=== PATIENT | male | born 1950 | race Caucasian/White ===

== ENCOUNTER → 2021-06-22 | Outpatient (BNVA) | payer MEDICARE, BC, SELFPAY | END | disposition home or self-care (01) | PROVIDERS: PCP Family Medicine; Visit Provider Urology | DX: I10 Essential (primary) hypertension (principal) ==

== ENCOUNTER → 2025-01-28 | Outpatient (CLI) | payer MEDICARE, BC, SELFPAY ==
[2025-01-28 12:02] LABS: Basophils # (Auto) 0.1 Thou/mm3 (0.0-0.2); Basophils % (Auto) 1 % (0-2.5); Eosinophils # (Auto) 0.2 Thou/mm3 (0.0-0.5); Eosinophils % (Auto) 3 % (0-10); Hematocrit 40.5 % (41.0-53.0); Hemoglobin 14.3 g/dL (13.5-16.0); Immature Granulocytes % (Auto) 0 % (0-0); Immature Granulocytes Auto 0.03 Thou/mm3 (0.00-0.00); Lymphocytes # (Auto) 2.5 Thou/mm3 (1.0-4.8); Lymphocytes % (Auto) 31 % (10-50); Mean Corpuscular HGB Conc 35.3 g/dl (31.0-37.0); Mean Corpuscular Hemoglobin 33.6 pg (25.0-35.0); Mean Corpuscular Volume 95 fL (80-100); Monocytes # (Auto) 0.7 Thou/mm3 (0.0-0.8); Monocytes % (Auto) 9 % (0-12); Neutrophils # (Auto) 4.4 Thou/mm3 (1.8-7.7); Neutrophils % (Auto) 56 % (37-80); Nucleated Red Blood Cell % 0 /100 WBC (0); Platelet Count 262 Thou/mm3 (140-440); RDW Standard Deviation 41.1 fL (35.1-43.9); Red Blood Count 4.26 Miln/mm3 (4.50-5.90); White Blood Count 7.9 Thou/mm3 (3.8-10.6)
[2025-01-28 12:15] LABS: Alanine Aminotransferase 19 U/L (10-49); Albumin, Serum 4.2 gm/dL (3.4-4.8); Albumin/Globulin Ratio 1.7 (1.2-2.2); Alkaline Phosphatase 63 U/L (46-116); Anion Gap 6 (7-16); Aspartate Amino Transferase 26 U/L (0-34); BUN/Creatinine Ratio 14 Ratio (12-20); Bilirubin,Total 1.2 mg/dL (0.3-1.2); Blood Urea Nitrogen 18 mg/dL (9-23); Calcium 9.2 mg/dL (8.3-10.6); Calcium (Corrected) 9.2 mg/dL (8.5-10.1); Carbon Dioxide 30.9 mMol/L (20.0-31.0); Chloride 102 mMol/L (98-107); Creatinine (Component) 1.3 mg/dL (0.6-1.3); Globulin 2.5 gm/dL (2.3-3.5); Glucose 106 mg/dL (74-106); Osmolality,Calculated 279 (275-295); Potassium 4.6 mMol/L (3.4-5.1); Sodium 139 mMol/L (136-145); Total Protein 6.7 gm/dL (5.7-8.2); eGFR 57 See Note
== END | disposition home or self-care (01) ==
LOC: SCTO 11:15
PROVIDERS: PCP Family Medicine; Referring Provider Internal Medicine Hematology & Oncology; Visit Provider Internal Medicine Hematology & Oncology
DX: C77.0 Secondary and unspecified malignant neoplasm of lymph nodes of head, face and neck (principal)
CPT/HCPCS: 36415; 80053; 85025

== ENCOUNTER 2025-01-30 09:52 | Outpatient (RCR) | payer MEDICARE, BC, SELFPAY ==
--- NOTE | 2025-01-30 13:10 | CTCFLWUP_ITS ---
Patient: ZENOBIA LEVIN : 1950 Page 2 of 2 FOLLOW UP NOTE DATE OF SERVICE: 01/30/2025 NAME: ZENOBIA LEVIN ACCOUNT: [id number] : 1950 AGE: 74 INTERVAL HISTORY: Zenobia, a male with history of high-grade left neck mass (metastatic cancer with unknown primary), presented for follow-up. He was treated with cetuximab in 2008 and has remained in remission for over 15 years. Patient denied new symptoms, weight loss, or health concerns. He reported minimal smoking history and recent normal prostate examination. Assessment confirmed long-term remission with favorable prognosis. Plan includes annual follow-ups, ENT referral for nasopharyngeal examination, routine cancer screenings, and PSA testing. Chief Complaint Follow-up for high-grade left neck mass treated over 15 years ago History of Present Illness Zenobia Levin is a male patient with a history of high-grade left neck mass, diagnosed as metastatic cancer with unknown primary, who was treated with cetuximab from October 2008 to December 2008. He has been in remission for more than 15 years and is presenting for a follow-up visit. Mr. Levin reports no new symptoms or concerns at this visit. He denies any recent weight loss. His last colonoscopy was performed a couple of months ago, though results were not discussed. He mentions that his tonsils were removed when he was about 3 years old. Regarding his smoking history, Mr. Levin clarifies that he was never a regular smoker. He reports smoking very infrequently, estimating he consumed only one or two packs per year, typically during emergency work situations such as fires, floods, or earthquakes. A pack would last him two to three weeks during these periods. He quit smoking long before his cancer diagnosis. Mr. Levin reports compliance with routine cancer screenings. He recently underwent a prostate examination, which he states showed no abnormalities. He denies any current health issues or changes in his overall health status. Medications and Supplements - Cetuximab - Taken from October 2008 to December 2008 - Discontinued Review of Systems General: Negative for weight loss. Genitourinary: Negative for prostate issues. 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 Unknown primary. REASON FOR TODAY?S VISIT: This is office follow-up visit. Mr. Levin is here at [facility]. He is clinically doing well. Denies any new complaints. Denies any cough, chest pain, abdominal pain or leg cramps. Ambulating well without any help. Has good appetite and good energy levels. Her last colonoscopy was done about 8 years ago according to Mr. Levin. 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 Pathology showed metastatic high-grade poorly differentiated carcinoma with areas of comedonecrosis. Workup reportedly did not show a primary source. He was treated with chemoradiation. For chemotherapy he was on Erbitux from 10/09/2008 through 12/18/2008. Since then he has been recurrence free. 08/15/2018: I am seeing him for the first time today. He is doing very well. 07/22/2020: Retroperitoneal ultrasound? OTHER MEDICAL HISTORY/CONDITIONS: FAMILY HISTORY: SOCIAL HISTORY: MEDICATIONS: 1. No medications reported by patient - Medications Last Reconciled by Anastasiya Fraser MA on 01/30/2025 ALLERGIES: No Known Drug Allergies REVIEW OF SYSTEMS: A complete 14-point review of systems was performed and is negative except as noted in interval history. PHYSICAL EXAMINATION: VITAL SIGNS: Temperature?99, B/P?103/63, Oxygen?Saturation?96% PAIN: 0 - No pain ECOG Performance Status: 0 - Asymptomatic and fully active GENERAL APPEARANCE: Appears well, in no apparent distress, appropriately interactive. HEENT: Normocephalic, no temporal wasting, normal conjunctiva, no scleral icterus, normal hearing, lips without lesions, neck normal range of motion. CARDIOVASCULAR: Not assessed. PULMONARY: Normal respiratory effort, no respiratory distress or use of accessory muscles, speaking in full sentences, no tachypnea. EXTREMITIES: No pedal edema or cyanosis. SKIN: Normal skin appearance. NEUROLOGIC: Alert and oriented x4. PSHYCHIATRIC: Appropriate affect, mood normal, behavior normal, intact thought and speech. LABORATORY DATA: I have personally reviewed and interpreted each of the patient?s relevant lab tests, abnormal findings are below: Date 01/31/24 01/28/25 ??WHITE?BLOOD?COUNT?(Thou/mm3) 6.4 7.9 ??RED?BLOOD?COUNT?(Miln/mm3) 4.20?L 4.26?L ??HEMOGLOBIN?(gm/dl) 13.9 14.3 ??HEMATOCRIT?(%) 41.5 40.5?L ??PLATELET?COUNT?(Thou/mm3) 268 262 ??NEUTROPHILS?%,?AUTO?(%) 46 56 ??LYMPH?%,?AUTO?(%) 39 31 ??NEUTROPHILS,?AUTO?(Thou/mm3) 2.9 4.4 ??GLUCOSE,RANDOM?(mg/dL) 83 106 ??BLOOD?UREA?NITROGEN?(mg/dL) 21 18 ??CREATININE?(mg/dL) 1.20 1.30 ??SODIUM?(mmol/L) 139 139 ??POTASSIUM?(mmol/L) 4.7 4.6 ??CHLORIDE?(mmol/L) 104 102 ??CrCl?(CandG)?(ml/min) 56.48 49.45 ??AST/SGOT?(Unit/L) 26 26 ??ALT/SGPT?(Unit/L) 21 19 ??ALKALINE?PHOSPHATASE?(Unit/L) 63 63 ??BILIRUBIN,?TOTAL?(mg/dL) 0.9 1.2 ??PROTEIN?TOTAL?(gm/dl) 6.8 6.7 ??ALBUMIN,?SERUM?(gm/dl) 4.3 4.2 ??GLOBULIN?(gm/dl) 2.5 2.5 ??ALBUMIN/GLOBULIN?RATIO 1.7 1.7 ??CALCIUM,?SERUM?(mg/dL) 9.2 9.2 ??CALCIUM?SERUM?(CORRECTED)?(mg/dL) 9.2 9.2 Laboratory, Imaging, and Diagnostic Test Results - Tumor markers: - CK7: Positive - Cytokeratin: Positive - CK20: Negative - TGFR: Negative - ASSESSMENT/PLAN: Zenobia Levin, male patient with history of high-grade left neck mass treated with cetuximab from October to December 2008, now in remission for over 15 years. 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 Assessment: Patient was diagnosed with metastatic high-grade poorly differentiated carcinoma with comedonecrosis over 15 years ago. The primary site was unknown, with only a lymph node involvement identified. Tumor markers were CK7 and cytokeratin positive, CK20 negative, TGFR negative. Patient was treated with cetuximab from October 2008 to December 2008. He has been in remission for more than 15 years, which is well beyond the typical timeframe for chemotherapy and radiation-induced secondary cancers (usually occurring around year 4 or 5 post- treatment). The patient's long-term survival without recurrence suggests a favorable prognosis. Plan: - Continue annual follow-up visits - Refer to ENT for nasopharyngeal examination - Recommend routine cancer screenings, including colonoscopy - Order PSA testing - Advise patient to report any new weight loss History of Smoking Assessment: Patient reports minimal smoking history, estimated at 1-2 packs per year, primarily during emergency work situations. This level of smoking is not considered significant enough to warrant additional screening measures such as chest CT scans, which are typically recommended for individuals with a 20-30 pack-year history. Plan: - No specific interventions required for smoking history at this time Prostate Health Monitoring Assessment: Patient reports recent prostate examination via scope with normal findings. However, PSA testing has not been performed in the past. Plan: - Order PSA testing - Educate patient on the importance of prostate cancer screening ORDERS: Order # Description [id number] Comprehensive Metabolic Panel - 12 + CBC with Auto Diff + MD Follow Up 1 Year + [id number] PSA RETURN TO CLINIC: BILLING AND COMPLIANCE: I reviewed external records from providers outside my specialty as summarized above. I spent a total of 50 minutes on this patient?s care on the day of their visit excluding time spent related to any billed procedures. This time includes time spent with the patient as well as time spent documenting in the medical record, reviewing patients records and tests, obtaining history, placing orders, communicating with other healthcare professionals, counseling the patient, family or caregiver, and/or care coordination for the diagnoses above. Electronically Signed by: Tony Proctor MD T: 1:08 PM CC: Peyton? PCP: Anastasiya Peck Referring: Anastasiya Peck This document was completed utilizing speech recognition software. Grammatical errors, random word insertions, pronoun errors, and incomplete sentences are an occasional consequence of this system due to software limitations, ambient noise, and hardware issues. Any formal questions or concerns about the content, text or information contained within the body of this dictation should be directly addressed to the provider for clarification.
== END 2025-02-03 23:59 | disposition home or self-care (01) ==
LOC: SCTC 09:52
PROVIDERS: PCP Family Medicine; Referring Provider Family Medicine; Visit Provider Internal Medicine Hematology & Oncology
DX: Z08 Encounter for follow-up examination after completed treatment for malignant neoplasm (principal); Z85.89 Personal history of malignant neoplasm of other organs and systems
CPT/HCPCS: 99212; G0463